=== PATIENT | male | born 1960 | race African-American/Black ===

== ENCOUNTER 2017-05-30 16:20 | Emergency (ER) | payer MEDICAID, OTHER ==
[~2017-05-30] VITALS: Wt 89.0 kg
[~2017-05-30 16:20] MED LIST: HYDR-3498 PO
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
== END 2017-05-30 18:54 | disposition home or self-care (01) ==
LOC: FTE 16:20
DX: Z48.01 Encounter for change or removal of surgical wound dressing (principal); Z87.891 Personal history of nicotine dependence
CPT/HCPCS: 99281